=== PATIENT | female | born 1965 | race Caucasian/White ===

== ENCOUNTER → 2017-07-28 | Outpatient (CLI) | payer MEDICARE, OTHER ==
--- NOTE | 2017-07-28 21:46 | CT ---
EXAMINATION TYPE: CT abdomen w con DATE OF EXAM: 07/28/2017 HISTORY: Right side flank pain x5 months. CT DLP: 345.1mGycm Automated Exposure Control for Dose Reduction was Utilized. CONTRAST: CT scan of the abdomen is performed with oral and with IV Contrast, patient injected with 100ml mL of Omnipaque 300. COMPARISON: None. FINDINGS: LUNG BASES: No significant abnormality is appreciated. LIVER/GB: Cholecystectomy clips are present. PANCREAS: No significant abnormality is seen. SPLEEN: No significant abnormality is seen. ADRENALS: No significant abnormality is seen. KIDNEYS: No significant abnormality is seen. BOWEL: In the oral contrast does not reach colonic level. There is no suspicious small and large al l dilatation. Normal-appearing appendix is partially imaged from the base of cecum. UTERUS/ADNEXA: Top of the uterus is partially imaged. There are surgical or tubal ligation clips in t he bilateral adnexa. LYMPH NODES: No greater than 1cm abdominal lymph nodes are appreciated. OSSEOUS STRUCTURES: No significant abnormality is seen. OTHER: There is single additional surgical clip anterior left upper pelvis axial image 60 perhaps dis placed cholecystectomy clip, additional displaced clip is seen below inferior right hepatic lobe axia l image 35. IMPRESSION: No significant acute finding is seen to account for patient's clinical symptoms of right- sided flank pain.
== END | disposition home or self-care (01) ==
LOC: RADCTMAIN 16:35
PROVIDERS: ATTEND Family Medicine
DX: R10.9 Unspecified abdominal pain (principal)
CPT/HCPCS: 74160; Q9967